=== PATIENT | male | born 2000 | race Caucasian/White ===

== ENCOUNTER 2020-02-08 16:36 | Emergency (ER) | payer BC, SELFPAY ==
[2020-02-08 17:02] VITALS: BP 133/78; PULSE 96; RESP 14; TEMP 36.3; O2SAT 99; BMI 23.0
--- NOTE | 2020-02-08 17:19 | XRR_ITS ---
PROCEDURE INFORMATION: Exam: XR Abdomen, 1 View Exam date and time: 02/08/2020 5:57 PM Age: 19 years old Clinical indication: Abdominal pain; Localized; Right lower quadrant (rlq); Additional info: Ruq pain TECHNIQUE: Imaging protocol: XR of the abdomen. Views: Frontal supine view of the abdomen. 1 View. COMPARISON: No relevant prior studies available. FINDINGS: Gastrointestinal tract: Normal. No bowel dilation. Bones/joints: The upper end of an intramedullary jenna is seen in the proximal right femur. XR/XR KUB portable 18048 IMPRESSION: No acute findings.
--- NOTE | 2020-02-08 17:28 | ED_ITS ---
HPI - Abdominal Pain General: Chief Complaint: Abdominal Pain Stated Complaint: rt abdominal pain Time Seen by Provider: 02/08/20 17:09 History of Present Illness: HPI narrative: Patient complains about right upper quadrant pain intermittent over the last few days. Denies fever chills nausea vomiting bowel or bladder problems. Pain lasts for maybe 30 minutes at a time and then subsides and then can come on quickly. Has tried some Gas-X did not seem to have much success with that MD elicited complaint: abdominal pain Pertinent past history: none Onset (ago): day(s) Pain Consistency: intermittent and now resolved Location: RUQ Severity: mild Quality: cramping and fullness Radiation: none Migration to: other (Penis hurts at times) Exacerbating factors: nothing Relieving factors: other (Laying down) Associated Symptoms: Reports no associated symptoms; Denies chills, dysuria, fever(s), hematuria, nausea and vomiting Review of Systems Const: Denies: fever(s), chills or body aches Eyes: Denies: change in vision or blurry vision ENMT: Denies: throat pain or nasal congestion Card: Denies: chest pain or dyspnea on exertion Resp: Denies: dyspnea, productive cough or non-productive cough GI: Reports: abdominal pain; Denies: nausea or vomiting : Reports: other (Says his penis feels like there is pain and occasionally when this happens ); Denies: difficulty urinating, dysuria, hematuria or hematospermia Musc: Denies: extremity pain Skin/Breast: Denies: rash Neuro: Denies: headache(s) Psych: Denies: anxiety or depression Nirmal/Lymph: Denies: easy bruising Physical Exam Const: COMMON NORMALS: no acute distress, average body habitus and patient oriented x3 HENMT: COMMON NORMALS: normocephalic HEAD & SCALP: normal to inspection and normocephalic FACE & SINUS: normal facial exam Eye: COMMON NORMALS: conjunctivae normal GENERAL EYE: appearance normal, both eyes and all related structures CONJUNCTIVA: Yes conjunctivae normal Neck/C-Spine: COMMON NORMALS: no JVD Chest: COMMONS NORMALS: normal inspection of the chest Resp: COMMON NORMALS: normal respiratory effort and clear to auscultation bilaterally AUSCULTATION: clear to auscultation bilaterally Cardio: COMMON NORMALS: no JVD, regular rate and regular rhythm RATE: regular rate RHYTHM: regular rhythm GI: COMMON NORMALS: Normal to inspection, nondistended, normoactive bowel sounds present PALPATION: Yes Tenderness to palpation present (GI) Details: RUQ (Very mild) Extremity: COMMON NORMALS: normal to inspection and full ROM Neuro: COMMON NORMALS: patient oriented x3 Course Vital Signs: Vital signs: Vital Signs Temperature 97.3 F L 02/08/20 17:02 Pulse Rate 91 02/08/20 18:18 Respiratory Rate 18 02/08/20 18:18 Blood Pressure 133/78 02/08/20 17:02 Pulse Oximetry 99 02/08/20 18:18 MDM - Abdominal Pain MDM Narrative: Medical decision making narrative: Patient declined blood work and urine. Would just like to have an x-ray. Said he is pain-free here than his flank started hurting a little bit but it is better now has complained about gas has a history of that. His main concern is appendicitis Lab Data: Labs: Lab Results 02/08/20 Range/Units 17:48 Urine Color Yellow (Yellow) Urine Appearance Clear (CLEAR) Urine pH 6 (5-7) Ur Specific Gravit y 1.020 (1.005-1.030) Urine Protein Trace (Negative) Urine Glucose (UA) Norm (Normal) Urine Ketones 1+ H (Negative) Urine Blood 3+ H (Negative) Urine Nitrate Negative (Negative) Urine Bilirubin Neg (Negative) Urine Urobilinogen 1 H (Negative) mg/dL Ur Leukocyte Lizet ase Negative (Negative) Urine RBC 40-50 H (0-2) /hpf Urine WBC 0-4 H (0-5) /hpf Ur Squamous Epith Cells 0-4 H (0-5) /hpf Calcium Oxalate Cr ystal 0-4 H /hpf Amorphous Sediment Not Reportable Urine Bacteria 1+ H (NONE) /hpf Urine Mucus 3+ /hpf Discharge Plan Discharge Patient Disposition: Home Clinical Impression: Abdominal gas pain Condition: Stable Prescriptions: No Action No Known Home Medications RF: 0 Discharge Orders: Discharge ED (Routine); Ordered 02/08/20 Ordered By: Xavier Zaman Referrals: [place] FNP [Primary Care Provider] - Discharge Diet: As Directed Discharge Activity: Resume usual activity Patient Instructions: Gas and Bloating (ED), Abdominal Pain (ED) Activity Restrictions/Additional Instructions: Tried laxative, MiraLAX, magnesium citrate, increase fiber, increase fluid in diet. Return here tonight or tomorrow if pain worsens or worsening symptoms you start developing fever nausea vomiting related problems. Coding Level of Care Code ED Contact Lens Lathe Operator for Lara Fwd Exam Comprehensive
[2020-02-08 18:18] VITALS: PULSE 91; RESP 18; O2SAT 99
[2020-02-08 18:30] LABS: Add Urine Microscopic? YES; Bilirubin Urine Neg (Negative); Blood Urine 3+ (Negative); Glucose Urine UA Norm (Normal); Ketones Urine 1+ (Negative); Leukocyte Esterase Urine Negative (Negative); Nitrate Urine Negative (Negative); Protein Urine Trace (Negative); Urine Appearance Clear (CLEAR); Urine Color Yellow (Yellow); Urobilinogen Urine 1 mg/dL (Negative); pH Urine 6 (5-7)
[2020-02-08 18:31] LABS: Add Urine Culture? Yes; Bacteria Urine 1+ /hpf; Calcium Oxalate Crystals Urine 0-4 /hpf; Mucus Urine 3+ /hpf; RBC Urine 40-50 /hpf (0-2); Squamous Epithelial Cell Urine 0-4 /hpf (0-5); WBC Urine 0-4 /hpf (0-5)
== END 2020-02-08 18:20 | disposition home or self-care (01) ==
PROVIDERS: Emergency Provider Nurse Practitioner Family; PCP Nurse Practitioner Family
DX: R10.9 Unspecified abdominal pain (principal)
CPT/HCPCS: 12345; 74018; 81001; 99281; 99283

== ENCOUNTER → 2022-03-20 12:26 | Outpatient (BNVA) | payer BC, SELFPAY | PROVIDERS: PCP Nurse Practitioner Family; Visit Provider Nurse Practitioner Family | DX: S69.91XA Unspecified injury of right wrist, hand and finger(s), initial encounter (principal); W00.0XXA Fall on same level due to ice and snow, initial encounter | CPT/HCPCS: 73130 ==